=== PATIENT | male | born 1945 | race African-American/Black ===

== ENCOUNTER 2017-05-15 09:25 | Inpatient (IN) | payer OTHER ==
[~2017-05-15] VITALS: Ht 185.4 cm; Wt 65.8 kg
--- NOTE | ~2017-05-15 | 2DMMODE ---
[facility] [address] [place] [address] 2 D/M-MODE ECHOCARDIOGRAM Name: VLAD FOLRES Room #: 438-P ADM IN M.R.#: [id number] Admission: 05/15/17 Attend Phys: Billy Jeter, Discharge: Date of : 45 Date of Service: 05/16/17 0906 Report #: [id number] THIS REPORT FOR: //name// APPROVED REPORT Study performed: 05/16/2017 08:08:56 EXAM: Comprehensive 2D, Doppler, and color-flow Echocardiogram Patient Location: Echo lab Room #: 438 Status: routine BSA: 1.86 HR: 108 bpm BP: 100/78 mmHg Rhythm: Atrial Fibrillation Other Information Study Quality: Good Indications Atrial Fibrillation 2D Dimensions RVDd: 43.05 mm LVEF(%): 40.24 (>50%) IVSd: 14.02 (7-11mm) LVOT Diam: 23.10 (18-24mm) LVDd: 35.15 mm PWd: 12.94 (7-11mm) Ascending Ao: 34.81 (22-36mm) LVDs: 28.44 (25-40mm) Aortic Root: 33.84 mm Auguste's LVEF: 40.24 % Volumes Left Atrial Volume (Systole) Single Plane 4CH: 66.30 mL Single Plane 2CH: 58.18 mL LA ESV Index: 35.00 mL/m2 Aortic Valve AoV Peak Trace.: 1.00 m/s AO Peak Gr.: 4.03 mmHg LVOT Max P.70 mmHg LVOT Max V: 0.65 m/s WALTER Vmax: 2.72 cm2 Pulmonary Valve PV Peak Trace.: 0.64 m/s PV Peak Gr.: 1.61 mmHg [facility] [address] [place] [address] 2 D/M-MODE ECHOCARDIOGRAM Name: VLAD FLORES Room #: 438-[facility] IN .R.#: [id number] Admission: 05/15/17 Attend Phys: Billy Jeter, Discharge: Date of : 45 Date of Service: 05/16/17 0906 Report #: [id number] Tricuspid Valve TR Peak Trace.: 2.68 m/s RAP Estimate: 5.00 mmHg TR Peak Gr.: 29.11 mmHg PA Pressure: 34.00 mmHg Left Ventricle The left ventricle is normal size. Regional wall motion is not well visualized but grossly normal. Mild concentric left ventricular hypertrophy. Left ventricular systolic function is at lower limits of normal LVEF is 45-50%. This study is not technically sufficient to allow evaluation of the LV diastolic function. Right Ventricle Right ventricle is dilated. The right ventricular systolic function is normal. Atria Left atrium is mildly dilated. Right atrium is moderate to severely dilated. Aortic Valve The aortic valve is mildly sclerotic, trileaflet. No aortic regurgitation is present. There is no aortic valvular stenosis. Mitral Valve Mitral valve leaflets are thickened. There is no mitral valve regurgitation noted. No evidence of mitral valve stenosis. Tricuspid Valve Moderate tricuspid regurgitation. Estimated PAP is 34mmHg. Pulmonic Valve The pulmonary valve is normal in structure. Trace pulmonic regurgitation. Great Vessels The aortic root is normal in size. The ascending aorta is normal in size. IVC is normal in size and collapses >50% with inspiration. Pericardium A small pericardial effusion is present. <Conclusion> Left ventricular systolic function is at lower limits of normal [facility] [address] [place] [address] 2 D/M-MODE ECHOCARDIOGRAM Name: VLAD FLORES Room #: 438-P ADM IN .R.#: [id number] Admission: 05/15/17 Attend Phys: Billy Jeter, Discharge: Date of : 45 Date of Service: 05/16/17905 Report #: [id number] LVEF is 45-50%. Right ventricle is dilated. Right atrium is moderate to severely dilated. The aortic valve is mildly sclerotic, trileaflet. No aortic valvular stenosis or insufficiency. Mitral valve leaflets are thickened. No mitral valve regurgitation noted. Pulmonary artery pressure estimated at 34mmHg A small pericardial effusion is present. <ELECTRONICALLY SIGNED> By: Castro King MD, [facility] 05/16/17905 5 5 Castro King MD, [facility] /INF
--- NOTE | ~2017-05-15 | EKG ---
[address] [address] ELECTROCARDIOGRAM REPORT Name: VLAD FLORES Room #: 438-P ADM IN M.R.#: [id number] Admission: 05/15/17 Attend Phys: Billy Jeter DO Discharge: Date of : 45 Report #: [id number] THIS REPORT FOR: //name// [facility] Test Date: 2017-05-16 Test Time: 08:48:24 Pat Name: VLAD FLORES Department: Room: 438 P Gender: M Car Clerk Pullman: SAGE : 1945 Requested By: Jacinta Schaeffer Order Number: [id number] MD: Dillan Floyd Measurements Intervals [place] Rate: 98 P: MD: QRS: -86 QRSD: 106 T: 32 QT: 387 QTc: 495 Interpretive Statements Atrial flutter Left anterior fascicular block Anteroseptal infarct, age indeterminate Electronically Signed On 05-16-2017 10:44:40 CDT by Dillan Floyd [email or web address] <ELECTRONICALLY SIGNED> By: Dillan Floyd MD 05/16/17 1044 0848 08 Dillan Floyd MD /FLACA
--- NOTE | ~2017-05-15 | CATHLAB ---
[facility] [address] [place] [address] INVASIVE PROCEDURE REPORT Name: VLAD FLORES Room #: 438-P ADM IN M.R.#: [id number] Admission: 05/15/17 Attend Phys: Billy Jeter, Discharge: Date of : 45 Date of Service: 05/17/17 1731 Report #: [id number] THIS REPORT FOR: //name// APPROVED REPORT Patient Details Patient Status: In-Patient Room #: The patient is a 72 year-old male Event Personnel Dominik Charles Enrollment Processor, Kody Elder RN, Cat Brito Sandifer, David Monitor Procedures Performed Art Access - R femoral artery* Left Heart Cath w/or w/o Coronaries [id number] [facility] Hemostasis with Manual pressure 87256 Initial Mod Sed Same Phys/QHP Gr5y [id number] Indication Atrial fibrillation, Dyspnea, Cardiomyopathy Risk Factors Hypercholesterolemia, Hypertension Procedure Narrative The patient was brought urgently to the Cardiac Catheterization Laboratory and was prepped and draped in a sterile manner. The Right Groin^ was infiltrated with 1% Lidocaine subcutaneous anesthesia. A PINNACLE 4FR Sheath #[id number] sheath was inserted into the RFA^. Coronary angiography was performed using coronary diagnostic catheters. The right coronary system was accessed and visualized with a JR 4 catheter. The left coronary system was accessed and visualized with a JL 4 catheter. The left ventricle was accessed and visualized with a Pigtail catheter. Left ventricular/Aortic Valve gradient assessed via catheter pullback. Left ventriculogram was performed in 30 degree projection. Hemostasis was obtained with manual pressure following sheath removal without any complications. The patient tolerated the procedure well and there were no complications associated with the procedure. There was no hematoma. Intraoperative Conscious Sedation Sedation start time: 12:58 Case end Time: 13:09 Fentanyl 50.0 mcg Versed 1.0 mg [address] [place] [address] INVASIVE PROCEDURE REPORT Name: VLAD FLORES Room #: 438-P [facility] IN M.R.#: [id number] Admission: 05/15/17 Attend Phys: Billy Jeter, Discharge: Date of : 45 Date of Service: 05/17/17 1731 Report #: [id number] Fluoro Time: 2.02 minutes Dose: 272 mGy Contrast Type and Amount: Omnipaque 120 ml Coronary Angiography The patient's coronary anatomy is right dominant. Diagnostic Cath Left Main Large-caliber vessel, no flow limiting lesions. LAD moderate size caliber vessel, traveling down the anterior wall and wrapping around the apex. There is mild disease in the mid segment, less than 20%. Diagonal 1 Moderate size caliber vessel, with no flow-limiting lesions. Circumflex Moderate size caliber vessel, with no flow-limiting lesions. OM1 Patent with no flow-limiting lesions. Right Coronary Dominant vessel with mild disease in the mid segment, 20%. Left Ventriculography The left ventricle is normal in size with decreased contractility. The left ventricular ejection fraction is estimated to be 40%. Hemodynamics The aortic pressure is 142/83 mmHg with a mean of 105 mmHg. The left ventricular pressure is 120/0 mmHg with a mean of mmHg. The left ventricular end diastolic pressure is 13 mmHg. Conclusion 1. Moderate, nonischemic cardiomyopathy. 2. 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 3. Recommend medical therapy. Recommendations Medical Therapy <ELECTRONICALLY SIGNED> By: Dominik Charles MD 05/17/17 173 173 30 Dominik Charles MD /INF
--- NOTE | ~2017-05-15 | EKG ---
[address] [address] ELECTROCARDIOGRAM REPORT Name: VLAD FLORES Room #: 438-P ADM IN M.R.#: [id number] Admission: 05/15/17 Attend Phys: Billy Jeter DO Discharge: Date of : 45 Report #: [id number] THIS REPORT FOR: //name// [facility] ED Test Date: 2017-05-15 Test Time: 14:27:30 Pat Name: VLAD FLORES Department: Room: 438 P Gender: M Debeaker: [id number] : 1945 Requested By: Yudy Trevino Order Number: [id number] MD: Castro King Measurements Intervals [place] Rate: 90 P: DC: QRS: -80 QRSD: 105 T: 23 QT: 389 QTc: 476 Interpretive Statements Probable Atrial flutter Left anterior fascicular block Anteroseptal infarct, age indeterminate Compared to ECG 05/15/2017 10:11:22 No significant change was found Electronically Signed On 05-16-2017 7:20:27 CDT by Castro King [email or web address] <ELECTRONICALLY SIGNED> By: Castro King MD, [facility] 05/16/17 0720 1427 1427 Castro King MD, [facility] /EPI
--- NOTE | ~2017-05-15 | EKG ---
[address] [place] [address] [place] [address] ELECTROCARDIOGRAM REPORT Name: VLAD FLORES Room #: REG Jason#: [id number] Admission: 05/15/17 Attend Phys: Discharge: Date of : 45 Report #: [id number] THIS REPORT FOR: //name// [facility] ED Test Date: 2017-05-15 Test Time: 10:11:22 Pat Name: VLAD FLORES Department: Room: Gender: M In Store Marketing Associate: [id number] : 1945 Requested By: Yudy Trevino Order Number: [id number] MD: Dillan Floyd Measurements Intervals [place] Rate: 77 P: -70 [place]: 269 QRS: -72 QRSD: 106 T: 37 QT: 427 QTc: 484 Interpretive Statements Sinus or ectopic atrial rhythm Prolonged [place] interval Consider left atrial enlargement Anterior infarct, old No previous ECG available for comparison Electronically Signed On 05-15-2017 11:40:22 CDT by Dillan Floyd [email or web address] <ELECTRONICALLY SIGNED> By: Dillan Floyd MD 05/15/17 1140 1011 1011 MD ESTEBAN Gomez
[2017-05-15 09:27] VITALS: BP 134/86
[2017-05-15 10:59] LABS: HEMATOCRIT 40.9 % (42.0-52.0); HEMOGLOBIN 13.5 gm/dL (14.0-18.0); MCH 29.3 pg (26.0-34.0); MCV 88.6 fL (80.0-100.0); PLATELET COUNT 138 thou/uL (150-400); RBC 4.62 mil/uL (4.50-6.00); RDW 14.6 % (10.5-14.5); WBC 4.9 thou/uL (4.0-11.0)
[2017-05-15 11:01] LABS: MANUAL DIFF YES
[2017-05-15 11:04] LABS: CALCIUM 8.8 mg/dL (8.5-10.1); CREATININE 1.1 mg/dL (0.7-1.3); POTASSIUM 3.7 mmol/L (3.5-5.1)
[2017-05-15 11:05] LABS: TROPONIN-I < 0.04 ng/mL (<0.04-0.07)
[2017-05-15 11:37] LABS: ABSOLUTE NEUTROPHILS 2.5 thou/uL (1.4-8.2); TOTAL CELL COUNT 100
[2017-05-15 11:39] LABS: ANISOCYTOSIS 1+
[2017-05-15 12:33] LABS: URINE BILIRUBIN NEGATIVE (Negative); URINE BLOOD 3+ (Negative); URINE COLOR YELLOW; URINE GLUCOSE-RANDOM* NEGATIVE (Negative); URINE KETONES NEGATIVE (Negative); URINE LEUKOCYTES-REFLEX 3+ (Negative); URINE PROTEIN (DIPSTICK) 1+ (Negative); URINE SPECIFIC GRAVITY 1.015 (1.003-1.035); URINE UROBILINOGEN 0.2 E.U./dl (0.2-1.0)
[2017-05-15 12:44] LABS: SQUAMOUS >10 Many /LPF (0-3)
[2017-05-15 12:45] LABS: CASTS None Seen /LPF (None Seen); CRYSTALS None Seen /LPF (None Seen); URINE WBC-REFLEX >25 Many /HPF (0-5)
[2017-05-15 12:47] LABS: URINE RBC 3-10 Few /HPF (0-2); YEAST-REFLEX Present (None Seen)
[2017-05-15 16:05] LABS: CHOLESTEROL 166 mg/dL (<200); HDL CHOLESTEROL 59 mg/dL (>40); LDL CHOLESTEROL 96 mg/dL (<100); TC:HDL 2.8 Ratio (Not establshd); TRIGLYCERIDE 55 mg/dL (<150); VLDL 11 mg/dL (<40)
[2017-05-15 16:08] VITALS: BP 127/87
[2017-05-15 16:12] VITALS: BP 127/87
[2017-05-15 17:20] VITALS: BP 124/91
[2017-05-15 20:00] VITALS: BP 111/84
[2017-05-16 04:30] VITALS: BP 122/91
[2017-05-16 06:40] LABS: ABSOLUTE NEUTROPHILS 2.7 thou/uL (1.4-8.2); BASOPHILS 0.8 % (0.0-2.0); EOSINOPHILS 5.8 % (0.0-3.0); HEMATOCRIT 38.2 % (42.0-52.0); HEMOGLOBIN 12.8 gm/dL (14.0-18.0); LYMPHOCYTES 27.7 % (24.0-44.0); MCH 29.3 pg (26.0-34.0); MCHC 33.5 g/dL (28.0-37.0); MCV 87.5 fL (80.0-100.0); MONOCYTES 11.7 % (1.0-8.0); PLATELET COUNT 146 thou/uL (150-400); RBC 4.36 mil/uL (4.50-6.00); RDW 14.4 % (10.5-14.5)
[2017-05-16 06:49] LABS: MANUAL DIFF NO
[2017-05-16 07:02] LABS: CALCIUM 8.3 mg/dL (8.5-10.1)
[2017-05-16 07:42] VITALS: BP 100/78
[2017-05-16 15:42] VITALS: BP 133/92
[2017-05-16 19:30] VITALS: BP 128/72
[2017-05-17 04:05] VITALS: BP 136/93
[2017-05-17 08:00] VITALS: BP 139/83
[2017-05-17] MEDS ORDERED: METOPROLOL SUCC25 M1 PO (08:26)
[2017-05-17] MEDS ORDERED: FLOMAX0.4 MG PO (08:26)
[2017-05-17] MEDS ORDERED: ADULT LOW DOSE81 MG PO (08:26)
[2017-05-17 11:04] VITALS: BP 139/83
[2017-05-17 15:43] VITALS: BP 141/89
[2017-05-17 20:28] VITALS: BP 140/105
[2017-05-18 04:19] VITALS: BP 138/82
[2017-05-18 08:00] VITALS: BP 147/85
[2017-05-18] MEDS ORDERED: PRADAXA150 MG PO (08:33)
[2017-05-18] MEDS ORDERED: COZAAR 25 MG TA25 M1 PO (08:33)
[2017-05-18 08:56] VITALS: BP 139/83
[2017-05-18 08:58] VITALS: BP 139/83
== END 2017-05-18 11:00 | disposition home or self-care (01) | DRG 287 ==
LOC: ER 09:25 → EROBS 15:27 → 4S 15:27 → ENTRNSPT 05-18 10:16 → EDTRNSPTSTS 05-18 10:17 → 4S 05-18 11:00
PROVIDERS: Emergency Medicine; Family Medicine
DX: I25.10 Atherosclerotic heart disease of native coronary artery without angina pectoris (principal); N39.0 Urinary tract infection, site not specified; I48.92 Unspecified atrial flutter; I42.8 Other cardiomyopathies; I10 Essential (primary) hypertension; I48.91 Unspecified atrial fibrillation; F17.290 Nicotine dependence, other tobacco product, uncomplicated; Z79.899 Other long term (current) drug therapy; Z88.0 Allergy status to penicillin; Z79.82 Long term (current) use of aspirin
CPT/HCPCS: 10100

== ENCOUNTER → 2018-01-03 | Outpatient (CLI) | payer OTHER ==
[~2018-01-03] MED LIST: ADULT LOW DOSE81 MG PO; COZAAR 25 MG TA25 M1 PO; COZAAR 50 MG TA50 M2 PO; FLOMAX0.4 MG PO; LOPRESSOR25 PO; METOPROLOL SUCC25 M1 PO; PRADAXA150 MG PO
--- NOTE | ~2018-01-03 | 2DMMODE ---
[facility] [address] [place] [address] 2 D/M-MODE ECHOCARDIOGRAM Name: VLAD FLORES JR Room #: REG [facility]#: [id number] Admission: 01/03/18 Attend Phys: Dillan Floyd Discharge: Date of : 45 Date of Service: 01/03/18 1421 Report #: [id number] THIS REPORT FOR: //name// APPROVED REPORT Study performed: 01/03/2018 13:36:02 EXAM: Comprehensive 2D, Doppler, and color-flow Echocardiogram Patient Location: Out-Patient Status: routine BSA: 1.90 HR: 61 bpm BP: 133/73 mmHg Rhythm: NSR Other Information Study Quality: Good Indications Atrial flutter status post ablation 2017. Hx: Cardiomyopathy 45-50% 2017 2D Dimensions RVDd: 51.09 mm LVEF(%): 62.48 (>50%) IVSd: 12.00 (7-11mm) LVOT Diam: 22.00 (18-24mm) LVDd: 41.81 mm PWd: 12.00 (7-11mm) LVDs: 27.85 (25-40mm) Aortic Root: 35.81 mm Auguste's LVEF: 62.48 % Volumes Left Atrial Volume (Systole) Single Plane 4CH: 66.64 mL Single Plane 2CH: 76.13 mL LA ESV Index: 41.00 mL/m2 Aortic Valve AoV Peak Trace.: 1.25 m/s AO Peak Gr.: 6.20 mmHg LVOT Max P.80 mmHg LVOT Max V: 0.97 m/s WALTER Vmax: 2.97 cm2 Mitral Valve E/A Ratio: 0.7 [facility] [place] [address] 2 D/M-MODE ECHOCARDIOGRAM Name: VLAD FLORES Room #: [facility]#: [id number] Admission: 01/03/18 Attend Phys: Dillan Floyd Discharge: Date of : 45 Date of Service: 01/03/18 1421 Report #: [id number] MV Decel. Time: 348.81 ms MV E Max Trace.: 0.82 m/s MV A Trace.: 1.10 m/s MV PHT: 101.15 ms IVRT: 101.50 ms Pulmonary Valve PV Peak Trace.: 0.99 m/s PV Peak Gr.: 3.92 mmHg Pulmonary Vein P Vein S: 0.61 m/s P Vein A: 0.28 m/s P Vein D: 0.40 m/s P Vein A Dur.: 96.9 msec P Vein S/D Ratio: 1.52 Tricuspid Valve TR Peak Trace.: 2.91 m/s RAP Estimate: 5.00 mmHg TR Peak Gr.: 33.90 mmHg PA Pressure: 39.00 mmHg Left Ventricle The left ventricle is normal size. Mild concentric left ventricular hypertrophy. Left ventricular systolic function is normal. LVEF is 55-60%. Mild diastolic dysfunction is present (impaired relaxation pattern). Right Ventricle Right ventricle is moderately dilated. The right ventricular systolic function is normal. Atria Left atrium is mildly dilated. Right atrium is moderately dilated. Aortic Valve Aortic valve leaflets are mildly thickened. No aortic regurgitation is present. There is no aortic valvular stenosis. Mitral Valve Mitral valve leaflets are mildly thickened. Trace to mild mitral regurgitation. No evidence of mitral valve stenosis. Tricuspid Valve The tricuspid valve is normal in structure. Moderate tricuspid regurgitation. Estimated PAP is 40mmHg. Pulmonic Valve [address] [address] 2 D/M-MODE ECHOCARDIOGRAM Name: VLAD FLORES Room #: REG [facility]#: [id number] Admission: 01/03/18 Attend Phys: [facility] Discharge: Date of : 45 Date of Service: 01/03/18 1421 Report #: [id number] The pulmonary valve is normal in structure. Trace to mild pulmonic regurgitation. Great Vessels The aortic root is normal in size. IVC is normal in size and collapses >50% with inspiration. Pericardium Small pericardial effusion noted. <Conclusion> The left ventricle is normal size. LVEF is 55-60%. Left atrium is mildly dilated. Right atrium is moderately dilated. Aortic valve leaflets are mildly thickened. Mitral valve leaflets are mildly thickened. Trace to mild mitral regurgitation. The tricuspid valve is normal in structure. Moderate tricuspid regurgitation. Estimated PAP is 40mmHg. The pulmonary valve is normal in structure. Trace to mild pulmonic regurgitation. Small pericardial effusion noted. <ELECTRONICALLY SIGNED> By: Mikey Davalos MD 01/03/18 1421 142 142 Mikey Davalos MD /INF
== END ==
LOC: CV 13:29
DX: I48.3 Typical atrial flutter (principal); I08.1 Rheumatic disorders of both mitral and tricuspid valves

== ENCOUNTER → 2018-07-25 | Outpatient (CLI) | payer OTHER | LOC: RAD 09:24 | DX: I51.7 Cardiomegaly (principal); R91.8 Other nonspecific abnormal finding of lung field; I48.91 Unspecified atrial fibrillation ==

== ENCOUNTER → 2020-07-09 | Outpatient (CLI) | payer OTHER | LOC: SJCVC 14:42 | PROVIDERS: ATTEND Internal Medicine Cardiovascular Disease | DX: R94.31 Abnormal electrocardiogram [ECG] [EKG] (principal); I45.10 Unspecified right bundle-branch block; I44.0 Atrioventricular block, first degree; I11.9 Hypertensive heart disease without heart failure; I49.1 Atrial premature depolarization; I48.3 Typical atrial flutter; I95.1 Orthostatic hypotension; I42.8 Other cardiomyopathies; J43.9 Emphysema, unspecified; F17.200 Nicotine dependence, unspecified, uncomplicated; Z79.82 Long term (current) use of aspirin; Z79.899 Other long term (current) drug therapy ==

== ENCOUNTER → 2021-07-08 | Outpatient (CLI) | payer OTHER | LOC: SJCVCIMAG 06:50 | PROVIDERS: ATTEND Internal Medicine Cardiovascular Disease | DX: I07.1 Rheumatic tricuspid insufficiency (principal); R94.31 Abnormal electrocardiogram [ECG] [EKG]; I44.4 Left anterior fascicular block; I44.0 Atrioventricular block, first degree; I48.3 Typical atrial flutter; J44.9 Chronic obstructive pulmonary disease, unspecified; I25.10 Atherosclerotic heart disease of native coronary artery without angina pectoris; N40.0 Benign prostatic hyperplasia without lower urinary tract symptoms; I11.9 Hypertensive heart disease without heart failure; Z88.0 Allergy status to penicillin; Z79.82 Long term (current) use of aspirin; Z79.899 Other long term (current) drug therapy; Z87.891 Personal history of nicotine dependence; Z95.818 Presence of other cardiac implants and grafts ==